=== PATIENT | female | born 1970 | race Caucasian/White ===

== ENCOUNTER → 2017-06-12 | Outpatient (CLI) | payer OTHER | LOC: MC.RAD 08:40 | DX: Z12.31 Encounter for screening mammogram for malignant neoplasm of breast (principal) ==

== ENCOUNTER → 2017-08-25 | Outpatient (CLI) | payer OTHER | LOC: COL.RAD 08:09 | DX: M17.0 Bilateral primary osteoarthritis of knee (principal); M23.52 Chronic instability of knee, left knee; M23.51 Chronic instability of knee, right knee ==

== ENCOUNTER → 2019-06-23 | Outpatient (CLI) | payer OTHER | LOC: MC.RAD 14:08 | DX: Z12.31 Encounter for screening mammogram for malignant neoplasm of breast (principal) ==

== ENCOUNTER → 2021-07-25 | Outpatient (CLI) | payer OTHER | LOC: MC.RAD 07:26 | DX: Z12.31 Encounter for screening mammogram for malignant neoplasm of breast (principal) ==

== ENCOUNTER → 2023-10-22 | Outpatient (CLI) | payer BC | LOC: COL.RAD 09:46 | DX: R93.89 Abnormal findings on diagnostic imaging of other specified body structures (principal); F33.42 Major depressive disorder, recurrent, in full remission; N95.0 Postmenopausal bleeding ==

== ENCOUNTER → 2024-09-16 | Outpatient (CLI) | payer BC | LOC: MC.RAD 11:28 | DX: Z12.31 Encounter for screening mammogram for malignant neoplasm of breast (principal) ==